=== PATIENT | female | born 1970 | race Caucasian/White ===

== ENCOUNTER → 2020-03-18 | Outpatient (CLI) | payer BC ==
--- NOTE | 2020-03-18 11:41 | Diagnostic Imaging Report ---
PROCEDURE: US Non-ob pelvis comp/trans. TECHNIQUE: Multiple realtime grayscale images were obtained of the pelvis in various projections endovaginally. Transabdominal imaging was also performed. INDICATION: Heavy cycles and pain There are no prior studies for comparison. The uterus is prominent measuring 8.6 x 5.2 x 5.7 cm. There are also 2 hypoechoic areas within the uterine fundus. These measure approximately 2.8 x 2.5 x 2.3 cm and 1.6 x 1.3 x 1.5 cm. I suspect these findings are related to uterine fibroids. The endometrial lining is slightly thickened measuring 10 mm (normal 5 mm). This finding is nonspecific. Correlation with patient's menstrual cycle would be recommended. Both ovaries were identified. There is good blood flow to each ovary and there is no sign of torsion. There are small cysts/follicles associated with each ovary. There is a small amount of free fluid adjacent to each ovary. Free fluid is nonspecific in appearance. There is no solid pelvic mass identified. IMPRESSION: 1. The uterus is prominent and there appear to be 2 uterine fibroids present. 2. The ovaries are generally unremarkable but there is a small amount of free fluid adjacent to each ovary. This finding is nonspecific however. 3. There is no solid pelvic mass or abscess identified. Dictated by: Dictated on workstation # [id number]
== END ==
LOC: RAD 09:39
PROVIDERS: ATTEND Obstetrics & Gynecology
DX: N93.9 Abnormal uterine and vaginal bleeding, unspecified (principal)
CPT/HCPCS: 76830; 76856

== ENCOUNTER → 2020-04-15 | Outpatient (CLI) | payer BC ==
--- NOTE | 2020-04-15 21:10 | Diagnostic Imaging Report ---
Digital mammogram bilateral screening. COMPARISON: This is the patient's baseline study. At this time, there are no current complaints. FINDINGS: The fibroglandular tissue in both breasts is heterogeneously dense. This does limit the sensitivity of this exam. There is no primary or secondary sign of malignancy noted. IMPRESSION: 1. There is no evidence for malignancy. 2. The patient should have her annual bilateral screening mammogram on schedule in April 2021 ACR category 1 ACR BI-RADS Category 1: Negative. Result letter will be mailed to the patient. Note: At least 10% of breast cancer is not imaged by mammography. Dictated by: Dictated on workstation # [id number]
== END ==
LOC: RAD 13:06
PROVIDERS: ATTEND Obstetrics & Gynecology
DX: Z12.31 Encounter for screening mammogram for malignant neoplasm of breast (principal)
CPT/HCPCS: 77063; 77067

== ENCOUNTER 2020-05-22 05:41 | Outpatient (RCR) | payer BC ==
[~2020-05-22] VITALS: Ht 167.7 cm; Wt 67.7 kg
== END 2020-05-22 14:37 | disposition home or self-care (01) ==
LOC: PREOP 05:41
PROVIDERS: ATTEND Obstetrics & Gynecology
DX: Z01.812 Encounter for preprocedural laboratory examination (principal); D25.9 Leiomyoma of uterus, unspecified; N87.9 Dysplasia of cervix uteri, unspecified; Z20.822 Contact with and (suspected) exposure to COVID-19
CPT/HCPCS: 87635

== ENCOUNTER 2020-05-26 08:26 | Day surgery (SDC) | payer BC ==
[2020-05-26] VITALS (10 sets, daily range): BP systolic 83–136; BP diastolic 51–104
[~2020-05-26] VITALS: Ht 167.7 cm; Wt 67.7 kg
[2020-05-26] MEDS ORDERED: LACTATED RINGERS 1,000 ML IV ONE (09:00)
[2020-05-26] MEDS ORDERED: ceFAZolin 2 GM IV Premixed 50 ML IV ONE (09:00)
[2020-05-26] MEDS ORDERED: metroNIDAZOLE 500MG/100ML IVPB 100 ML IV ONE (09:00)
[2020-05-26 09:24] LABS: BASOPHILS # (AUTO) 0.1 10^3/uL (0.0-0.1); BASOPHILS % (AUTO) 2 % (0-10); EOSINOPHILS # (AUTO) 0.2 10^3/uL (0.0-0.3); EOSINOPHILS % (AUTO) 4 % (0-10); HEMATOCRIT 33 % (35-52); HEMOGLOBIN 8.6 g/dL (11.5-16.0); LYMPHOCYTES # (AUTO) 1.7 10^3/uL (1.0-4.0); LYMPHOCYTES % (AUTO) 37 % (12-44); MEAN CORPUSCULAR HEMOGLOBIN 18 pg (25-34); MEAN CORPUSCULAR HGB CONC 26 g/dL (32-36); MEAN CORPUSCULAR VOLUME 69 fL (80-99); MEAN PLATELET VOLUME 10.3 fL (9.0-12.2); MONOCYTES # (AUTO) 0.4 10^3/uL (0.0-1.0); MONOCYTES % (AUTO) 10 % (0-12); NEUTROPHILS # (AUTO) 2.2 10^3/uL (1.8-7.8); NEUTROPHILS % (AUTO) 47 % (42-75); PLATELET COUNT 470 10^3/uL (130-400); WHITE BLOOD COUNT 4.6 10^3/uL (4.3-11.0)
[2020-05-26] MEDS ORDERED: MIDAZOLAM 2 MG/2 ML (VERSED) VIAL ONE ×2 (09:56→11:29)
[2020-05-26] MEDS: LACTATED RINGERS 1,000 ML IV PRN ×3 (10:11→20:12)
[2020-05-26] MEDS ORDERED: MIDAZOLAM 2 MG/2 ML (VERSED) VIAL IVP ONE (10:15)
[2020-05-26] MEDS ORDERED: MIDAZOLAM 2 MG/2 ML (VERSED) VIAL IV ONE (10:15)
[2020-05-26] MEDS ORDERED: proPOfol 200 MG/20 ML (DIPRIVAN) VIAL IV ONE (11:28)
[2020-05-26] MEDS ORDERED: ONDANSETRON 4 MG/2 ML (SDV) Z0FRAN ONE (11:28)
[2020-05-26] MEDS ORDERED: LIDOCAINE PF 2% 5 ML (XYLOCAINE) VIAL ONE (11:28)
[2020-05-26] MEDS ORDERED: ROCURONIUM 10 MG/ML 5 ML SYRINGE IV ONE (11:28)
[2020-05-26] MEDS ORDERED: fentaNYL INJECTION 100 MCG/2 ML AMP ONE (11:29)
[2020-05-26] MEDS ORDERED: SEVOFLURANE (ULTANE) 15 ML INHAL SOLN ONE ×6 (11:34→13:29)
[2020-05-26] MEDS ORDERED: BUPIVACAINE 0.25% 30 ML (SENSORCAINE) VIAL ONE (11:46)
[2020-05-26] MEDS ORDERED: GLYCOPYRROLATE 0.2 MG/ML (ROBINUL) 2 ML VIAL ONE (13:29)
[2020-05-26] MEDS ORDERED: NEOSTIGMINE 3 MG/3 ML VIAL ONE (13:29)
--- NOTE | 2020-05-26 13:49 | Anesthesia-General Post-Op ---
General Patient Condition Mental Status/LOC: Same as Preop Cardiovascular: Satisfactory Nausea/Vomiting: Absent Respiratory: Satisfactory Pain: Controlled Complications: Absent Post Op Complications Complications None Follow Up Care/Instructions Patient Instructions None needed. Anesthesia/Patient Condition Patient Condition Patient is doing well, no complaints, stable vital signs, no apparent adverse anesthesia problems. No complications reported per nursing. MIKALA MOSQUERA CRNA May 26, 2020 13:49
[2020-05-26] MEDS ORDERED: morphine INJ 10 MG/ML 1ML (SYR OR VIAL) IVP ONE (14:00)
[2020-05-26] MEDS ORDERED: fentaNYL INJECTION 100 MCG/2 ML AMP IVP ONE (14:00)
[2020-05-26] MEDS ORDERED: KETOROLAC 30 MG/ML VIAL IVP ONE (14:00)
[2020-05-26] MEDS ORDERED: HYDROmorphone 2 MG/ML VIAL (DILAUDID) IV ONE (14:00)
[2020-05-26] MEDS ORDERED: MEPERIDINE (DEMEROL) INJ 50 MG/ML IVP ONE (14:00)
[2020-05-26] MEDS ORDERED: ONDANSETRON 4 MG/2 ML (SDV) Z0FRAN IVP PRN (14:00)
--- NOTE | 2020-05-26 19:57 | OPERATIVE REPORT ---
DATE OF SERVICE: PREOPERATIVE DIAGNOSES: 1. A 49-year-old female with chronic pelvic pain. 2. Dysmenorrhea. 3. Cervical dysplasia. 4. Fibroid uterus. 5. Abnormal uterine bleeding. POSTOPERATIVE DIAGNOSES: 1. A 49-year-old female with chronic pelvic pain. 2. Dysmenorrhea. 3. Cervical dysplasia. 4. Fibroid uterus. 5. Abnormal uterine bleeding. PROCEDURE: Robotic-assisted total laparoscopic hysterectomy with bilateral salpingo-oophorectomy weighing greater than 250 grams. SURGEON: Bryn Portillo DO APPLICATION TRAINER: Ava Gandara DNP, who was necessary for manipulation and retraction throughout the procedure. ANESTHESIA: General endotracheal. ESTIMATED BLOOD LOSS: Minimal. URINE OUTPUT: 80 mL clear at the end of procedure. FLUIDS: 1800 mL lactated Ringer's solution. FINDINGS: A grossly normal appearing bilateral fallopian tubes. Multicystic appearing bilateral ovaries, several subserosal subcentimeter fibroids, otherwise grossly normal appearing pelvic anatomy. SPECIMEN SENT: Uterus, bilateral fallopian tubes and ovaries. INDICATIONS FOR PROCEDURE: This 49-year-old female is a patient who had sought my care due to the finding of fibroid uterus and heavy abnormal periods. Her workup involved an ultrasound, Pap smear, colposcopy all of these identified multiple factors that could be causing her bleeding as well as the finding of cervical dysplasia. The patient desired definitive treatment for all of these concerns and conditions. Risk of the procedure were discussed with the patient in detail in the preoperative visit including risk of bleeding, infection, damage to surrounding structures including, but not limited to bowel, bladder, ureter, kidneys, possible need for reoperation, postoperative complications that may occur, risk from anesthesia and even . After everything was discussed with the patient in detail and after all of her questions were answered, consent was obtained in the preoperative area, the patient was taken to the operating room. OPERATIVE REPORT IN DETAIL: Once in the operating room, general anesthesia was found to be adequate, placed in dorsal lithotomy position, prepped and draped in normal sterile fashion. Timeout was performed. A Romero catheter was placed using sterile technique. A weighted speculum inserted to the patient's vagina. A right angle retractor was used to visualize the cervix, which was grasped at 12 o'clock position using a long Allis clamp and 0 Vicryl suture was then placed anterior lip of the cervix using my retraction point. I then removed the Allis clamp. I then gently sound the uterine cavity, depth was found to be 8 cm. I selected an 8 cm Jaky uterine manipulator tip and a 3.5 cm colpotomy ring. I advanced the manipulator tip into the uterus deploying the balloon and advancing the colpotomy ring around the vaginal fornix, excellent manipulation is noted after doing this. I then removed all the other instruments from the patient's vagina, performed change of gloves and took my attention to the abdomen where infraumbilically I infiltrated this area using 0.25% Marcaine and make an 8 mm incision with a knife and directed Veress needle through the incision until intraperitoneal placement was confirmed using saline drop test. An opening pressure of 2 mmHg is noted. I proceeded to max pressure of 15 mmHg, at which point I removed the Veress needle and introduced an 8 mm laparoscopic blunt trocar into the peritoneal cavity. Once this was in place, I am able to confirm intraperitoneal placement using the da Erika laparoscope. I then briefly scanned the upper abdominal anatomy, was found to be grossly normal. There is no evidence of damage from entry site. I then placed in steep Trendelenburg and able to visualize all my pelvic anatomy as defined in my findings above. I then placed two lateral trocars approximately 8 cm lateral to my infraumbilical trocar. Once both these trocars were in place under direct visualization of laparoscope by bringing the da Erika robot and docked in appropriate fashion, placing the da Erika vessel sealer in the left hand and monopolar erich in the right hand, I performed the following dissection bilaterally. Starting at the infundibulopelvic ligament, I bipolar cauterized and transected using the vessel sealer. I then grasped the round ligament, which I bipolar cauterized and transected using vessel sealer. I then grasped the entire broad ligament, which I bipolar cauterized and transected using vessel sealer. I do this down to the level of the lower uterine segment, at which point I the anterior and posterior leaflets of the broad ligament, anterior leaflet dissection was taken around the anterior vaginal fornix and posterior leaflets dissection was taken around to the posterior vaginal fornix. This allows me to skeletonize the uterine vessels laterally, which I bipolar cauterize, seal and transect using vessel sealer. Once this was done, I created a colpotomy at 12 o'clock position using monopolar erich and took this circumferentially around the vaginal fornix amputating the uterus away from the vagina. The entire specimen was then removed through the vagina. The lateral vaginal apices of the vaginal cuff are then reapproximated using 2-0 Vicryl suture in a [id number] fashion colposuspending them to the uterosacral ligaments. I then closed the remainder of the vaginal cuff using 2-0 V-Loc in a running fashion, after which there was no active bleeding noted from any of my dissection planes. I then undocked the da Erika robot and proceeded with the remainder of the case laparoscopically. I copiously irrigated the pelvis using normal saline. There was no active bleeding noted from any of my dissection planes. I placed Surgiflo hemostatic agent over all my planes of dissection to ensure excellent postoperative hemostasis. I then had the patient taken out of steep Trendelenburg and removed the lateral trocars under direct visualization of the laparoscope and infraumbilical trocars left in place to release insufflation and to introduce 10 mL of 0.25% Marcaine into the peritoneal cavity for postoperative pain management. I then removed this trocar as well. The skin reapproximated using 4-0 Monocryl in interrupted subcuticular stitches. Dermabond was applied to incision and Band-Aids were placed over the incisions as well. Romero catheter was left in place. The patient tolerated the procedure well and was taken to recovery area in stable condition. Lap and sponge counts were correct at the end of the procedure and instrument counts correct as well. Two grams of Ancef, 500 mg of Flagyl were given preoperatively for infection prophylaxis. Job ID: [id number] DocumentID: [id number] Dictated Date: 05/26/2020 14:56:37 Edge Stainer Date: 05/26/2020 19:56:25 Dictated By: BRYN PORTILLO DO
[2020-05-26] MEDS ORDERED: KETOROLAC 30 MG/ML VIAL ONE (19:58)
[2020-05-26] MEDS: KETOROLAC 30 MG/ML VIAL IVP PRN (20:06)
[2020-05-27 02:35] VITALS: BP 118/65
[2020-05-27] MEDS: KETOROLAC 30 MG/ML VIAL IVP PRN (02:36)
[2020-05-27 02:48] VITALS: BP 118/65
[2020-05-27] MEDS ORDERED: IBUPROFEN 600 MG (MOTRIN) TAB PO SCH (08:00)
--- NOTE | 2020-05-27 08:07 | Discharge Inst-Women's Service ---
Discharge Inst-Women's Serv Depart Medication/Instructions New, Converted or Re-Newed RX: RX on Chart Problems Reviewed?: Yes Consults/Follow Up Additional Follow Up: Yes Orders/Referrals Dr. Starkey in 7-10 days, and 8 weeks Activity Activity: Activity as Tolerated Driving Instructions: No Driving for 1 Week NO SMOKING: NO SMOKING Nothing Inside Vagina: No Douching, No Kerr, No Tampons Diet Discharge Diet: No Restrictions Symptoms to Report to : Bleeding Excessive, Pain Increased, Fever Over 101 Degrees F, Vaginal Bleeding Increase, Questions/Concerns For Any Problems or Questions: Contact Your Physician Skin/Wound Care Infection Signs and Symptoms: Increased Redness, Foul Odor of Wound, Increased Drainage, Skin Itchy or Has a Rash, Increased Swelling, Temperature Above 101 F Operative Area Clean and Dry: Keep Incision Clean/Dry Stitches/[place]/Dermabond: Dermabond, Care of Stitches Bathing Instructions: SARA Paris DO May 27, 2020 08:07
[2020-05-27] MEDS ORDERED: DCS100C PO (08:09)
[2020-05-27] MEDS ORDERED: IBUP-844 PO (08:09)
[2020-05-27] MEDS ORDERED: HYDR-34 PO (08:09)
[2020-05-27 08:15] VITALS: BP 126/59
[2020-05-27] MEDS ORDERED: SIMETHICONE 80 MG (MYLICON) CHEW PO PRN (08:15)
[2020-05-27] MEDS ORDERED: ZOLPIDEM 5 MG (AMBIEN) TAB PO PRN (08:15)
[2020-05-27] MEDS ORDERED: LACTATED RINGERS 1,000 ML IV SCH (08:15)
[2020-05-27] MEDS ORDERED: ANTACID SUSP 30 ML UDC (MYLANTA) PO PRN (08:15)
[2020-05-27] MEDS ORDERED: ONDANSETRON 4 MG/2 ML (SDV) Z0FRAN IV PRN (08:15)
[2020-05-27] MEDS ORDERED: DOCUSATE SODIUM 100 MG (COLACE) CAP PO PRN (08:15)
[2020-05-27] MEDS ORDERED: CHLORASEPTIC LOZENGE MM PRN (08:15)
[2020-05-27] MEDS ORDERED: HYDROcodone/APAP 7.5 MG/325 MG (LORTAB, LORCET PLUS) TABLET PO PRN (08:15)
[2020-05-27] MEDS ORDERED: KETOROLAC 30 MG/ML VIAL IV PRN (08:15)
[2020-05-27 11:15] VITALS: BP 126/59
[2020-05-28] MEDS ORDERED: IBUPROFEN 600 MG (MOTRIN) TAB PO SCH (01:00)
== END 2020-05-27 11:15 | disposition home or self-care (01) ==
LOC: SDC 08:26 → WS 14:25 → SDC 05-27 11:15
PROVIDERS: ATTEND Obstetrics & Gynecology
DX: D25.1 Intramural leiomyoma of uterus (principal); D25.2 Subserosal leiomyoma of uterus; N84.0 Polyp of corpus uteri; D27.0 Benign neoplasm of right ovary; N87.1 Moderate cervical dysplasia; Z80.1 Family history of malignant neoplasm of trachea, bronchus and lung
CPT/HCPCS: 36415; 84703; 85025; 86850; 86900; 86901; 87081; 94664